=== PATIENT | male | born 1955 | race African-American/Black ===

== ENCOUNTER 2016-05-23 20:22 | Emergency (ER) | payer OTHER ==
[2016-05-23] MEDS ORDERED: Ketorolac Tromethamine 30 MG/ML VIAL ONE (20:57)
[2016-05-23] MEDS ORDERED: Acetaminophen 325 MG TAB ONE (20:59)
[2016-05-23 21:15] LABS: #Basophils 0.2 thou/uL (0.0-0.2); #Lymphocytes 1.3 thou/uL (1.20-3.40); #Monocytes 0.9 thou/uL (0.11-0.59); #Neutrophils 7.8 thou/uL (1.40-6.50); %Basophils 1.7 % (0.0-1.0); %Monocytes 8.8 % (0.0-10.0); %Neutrophils 76.6 % (42.0-75.0); Hemoglobin 14.3 g/dL (14.0-18.0); Mean Corpuscular HGB CONC 32.7 g/dL (32.0-36.0); Mean Corpuscular Hemoglobin 29.2 pg (27.0-31.0); Mean Corpuscular Volume 89.3 fl (80.0-94.0); Mean Platelet Volume 5.9 fL (7.4-10.4); Platelet Count 278 thou/uL (130-400); RBC Distribution Width 13.1 % (11.5-14.5); White Blood Cell (WBC) Count 10.2 thou/uL (4.8-10.8)
[2016-05-23 21:38] LABS: ALT (SGPT) 9 U/L (0-55); AST (SGOT) 17 U/L (5-34); Albumin 3.7 g/dL (3.5-5.0); Alkaline Phosphatase 47 U/L (40-150); Anion Gap 16 mmol/L (10-20); BUN (Urea Nitrogen) 17 mg/dL (8.4-25.7); Bilirubin, Total 0.7 mg/dL (0.2-1.2); Calc. Creatinine Clearance 0 mL/min (70-130); Carbon Dioxide 23 mmol/L (22-29); Chloride 94 mmol/L (98-107); Estimated GFR-MDRD 55; Globulin 4.1 g/dL (2.4-3.5); Glucose 94 mg/dL (70-105); Lipase 23 U/L (8-78); Potassium 4.4 mmol/L (3.5-5.1); Protein, Total 7.8 g/dL (6.0-8.3); Sodium 129 mmol/L (136-145)
[2016-05-23 21:56] LABS: Bilirubin Negative (Negative); Blood, Urine Trace (Negative); Clarity Clear (Clear); Glucose, Urine (Dipstick) Negative (Negative); Icto Negative (Negative); Leukocyte Negative (Negative); Nitrite Negative (Negative); Protein, Urine (Dipstick) 30 mg/dL (Neg-Trace); Specific Gravity, Urine 1.015 (1.005-1.030); pH, Urine 6.5 (5.0-9.0)
[2016-05-23 21:57] LABS: Bacteria/HPF None Seen HPF (None Seen); RBC/HPF 0-3 HPF (0-3); Squamous Epithelial 0-3 HPF (0-3); WBC/HPF None Seen HPF (0-3)
[2016-05-23] MEDS ORDERED: Ibuprofen 200 MG TAB ONE (22:14)
--- NOTE | 2016-05-23 22:26 | RAD ---
SINGLE VIEW OF THE CHEST: Comparison: 04-06-15 History: Body aches, atypical chest pain. FINDINGS: Single view of the chest shows a normal sized cardiomediastinal silhouette. There is no evidence of consolidation, mass, or pleural effusion. The bones are unremarkable. IMPRESSION: No evidence of acute cardiopulmonary disease. POS: [id number]
--- NOTE | 2016-05-23 22:28 | RAD ---
THREE VIEWS OF THE CERVICAL SPINE: Comparison: None. History: Neck pain. FINDINGS: Three views of the cervical spine shows normal height and alignment of the vertebral bodies without fracture or subluxation. There are moderate degenerative changes in the cervical spine with large a nterior osteophytes. No prevertebral soft tissue swelling is seen. Surgical clips are seen in the right neck. IMPRESSION: Moderate degenerative changes of the cervical spine without acute osseous abnormality. POS: [id number]
== END 2016-05-23 22:20 | disposition home or self-care (01) ==
LOC: NAV ERS 20:22
DX: B34.9 Viral infection, unspecified (principal); I10 Essential (primary) hypertension; E78.5 Hyperlipidemia, unspecified; F32.9 Major depressive disorder, single episode, unspecified; F17.210 Nicotine dependence, cigarettes, uncomplicated; Z79.899 Other long term (current) drug therapy
CPT/HCPCS: 36415; 71010; 72040; 80053; 81003; 81015; 83690; 85025; 87040; 96374; J1885

== ENCOUNTER 2021-07-28 12:31 | Emergency (ER) | payer MEDICARE, OTHER ==
[2021-07-28] MEDS ORDERED: cloNIDine 0.1 MG TAB ONE (13:16)
== END 2021-07-28 14:30 | disposition home or self-care (01) ==
LOC: NAV ERS 12:31
DX: I10 Essential (primary) hypertension (principal); E78.5 Hyperlipidemia, unspecified; F17.210 Nicotine dependence, cigarettes, uncomplicated; Z79.899 Other long term (current) drug therapy
CPT/HCPCS: 99283

== ENCOUNTER 2021-12-28 04:08 | Emergency (ER) | payer MEDICARE, MEDICAID ==
[2021-12-28] MEDS ORDERED: Nitroglycerin 0.4 MG TAB (25 Tab Bottle) ONE (04:27)
[2021-12-28] MEDS ORDERED: Aspirin Chewable 81 MG TAB ONE (04:27)
[2021-12-28 04:33] LABS: #Basophils 0.1 thou/uL (0.0-0.2); #Eosinphils 0.1 thou/uL (0.0-0.7); #Lymphocytes 1.5 thou/uL (1.20-3.40); #Monocytes 0.5 thou/uL (0.11-0.59); #Neutrophils 4.5 thou/uL (1.40-6.50); %Basophils 1.4 % (0.0-1.0); %Eosinophils 2.2 % (0.0-10.0); %Lymphocytes 22.3 % (21.0-51.0); %Monocytes 7.4 % (0.0-10.0); %Neutrophils 66.7 % (42.0-75.0); Hemoglobin 16.4 g/dL (14.0-18.0); Mean Corpuscular HGB CONC 32.2 g/dL (32.0-36.0); Mean Corpuscular Hemoglobin 30.3 pg (27.0-31.0); Mean Corpuscular Volume 94.2 fL (78.0-98.0); Mean Platelet Volume 6.8 fL (7.4-10.4); Platelet Count 232 thou/uL (130-400); RBC Distribution Width 13.8 % (11.5-14.5); Red Blood Cell (RBC) Count 5.41 mill/uL (4.70-6.10); White Blood Cell (WBC) Count 6.8 thou/uL (4.8-10.8)
[2021-12-28] MEDS ORDERED: Nitroglycerin 2% Ointment 1 INCH/1 GM Packet ONE (04:40)
[2021-12-28 04:48] LABS: ALT (SGPT) 12 U/L (8-55); AST (SGOT) 12 U/L (5-34); Albumin 4.1 g/dL (3.4-4.8); Alkaline Phosphatase 61 U/L (40-110); Anion Gap 12 mmol/L (10-20); BUN (Urea Nitrogen) 13 mg/dL (8.4-25.7); Bilirubin, Total 0.5 mg/dL (0.2-1.2); Calc. Creatinine Clearance 0 mL/min (70-130); Calcium 9.3 mg/dL (7.8-10.44); Carbon Dioxide 27 mmol/L (23-31); Chloride 104 mmol/L (98-107); Estimated GFR 52; Globulin 3.7 g/dL (2.4-3.5); Glucose 125 mg/dL (80-115); Potassium 3.7 mmol/L (3.5-5.1); Protein, Total 7.8 g/dL (5.8-8.1); Sodium 139 mmol/L (136-145)
[2021-12-28 05:16] LABS: Bilirubin Negative (Negative); Blood, Urine Trace (Negative); Clarity Clear (Clear); Glucose, Urine (Dipstick) Negative (Negative); Ketone, Urine Negative (Negative); Leukocyte Negative (Negative); Nitrite Negative (Negative); Protein, Urine (Dipstick) Negative (Neg-Trace); Urobilinogen 0.2 mg/dL (Less than 2); pH, Urine 6.5 (5.0-9.0)
[2021-12-28 05:19] LABS: Bacteria/HPF None Seen HPF (None Seen); RBC/HPF 0-3 HPF (0-3); Squamous Epithelial 0-3 HPF (0-3); WBC/HPF 0-3 HPF (0-3)
[2021-12-28] MEDS ORDERED: hydrALAZINE 20 MG/ML VIAL ONE (05:19)
[2021-12-28] MEDS ORDERED: Amlodipine 5 MG TAB ONE (05:24)
[2021-12-28 05:26] LABS: Amphetamine Not Detected (NotDetected); Barbiturates Screen Not Detected (NotDetected); Benzodiazepine Screen Not Detected (NotDetected); Cocaine Metabolite Screen Not Detected (NotDetected); Medtox Control Line Valid? VALID (VALID); Methadone Not Detected (NotDetected); Methamphetamine Not Detected (NotDetected); Opiate Screen Not Detected (NotDetected); Oxycodone Screen Not Detected (NotDetected); Phencyclidine (PCP) Not Detected (NotDetected); THC/Cannabinoid Screen Not Detected (NotDetected); Tricyclic Screen Not Detected (NotDetected)
== END 2021-12-28 06:41 | disposition short-term general hospital (02) ==
LOC: NAV ERS 04:08
DX: I10 Essential (primary) hypertension (principal); R07.2 Precordial pain; F17.210 Nicotine dependence, cigarettes, uncomplicated; Z79.899 Other long term (current) drug therapy
CPT/HCPCS: 71045; 80053; 80306; 81003; 81015; 84484; 85025; 93005; 96374; J0360

== ENCOUNTER 2023-11-25 14:37 | Outpatient (CLI) | payer MEDICARE, MEDICAID | END 2023-11-25 14:38 | disposition home or self-care (01) | LOC: NAV RAD 14:37 | PROVIDERS: ATTEND Nurse Practitioner Family | DX: M79.652 Pain in left thigh (principal); M25.552 Pain in left hip ==